=== PATIENT | male | born 1965 | race Hispanic/Latino ===

== ENCOUNTER 2019-06-25 10:49 | Emergency (ER) | payer OTHER ==
[~2019-06-25] VITALS: Ht 157.5 cm; Wt 93.0 kg
--- NOTE | 2019-06-25 11:49 | Diagnostic Imaging Report ---
History: Headache Comparison studies: None Technique: Axial images were obtained from the skull base to the vertex. Coronal and sagittal reconstructions obtained from the axial data. Dose modulation, iterative reconstruction, and/or weight based adjustment of the mA/kV was utilized to reduce the radiation dose to as low as reasonably achievable. Findings: Scalp/skull: No abnormalities. No fractures, blastic or lytic lesions. Extra-axial spaces: No masses. No fluid collections. Brain sulci: Appropriate for age. Ventricles: Normal in size and configuration. No hydrocephalus. Parenchyma: No abnormal densities. No masses, hemorrhage, acute or chronic cortical vascular insults. Sellar/suprasellar region: No abnormalities Craniocervical junction: Patent foramen magnum. No Chiari one malformation. Atherosclerotic calcifications of the left vertebral artery IMPRESSION: No acute abnormalities . Signed by: DR Jimmy Capellan M.D. on 06/25/2019 11:45 AM
[2019-06-25 14:15] VITALS: BP 155/81
== END 2019-06-25 12:45 | disposition home or self-care (01) ==
LOC: FSED 10:49
DX: G44.89 Other headache syndrome (principal)
CPT/HCPCS: 70450; 80048; 85025; 99283